=== PATIENT | female | born 1960 | race Caucasian/White ===

== ENCOUNTER 2024-01-23 17:35 | Inpatient (IN) | payer OTHER ==
[2024-01-23 18:31] VITALS: BMI 27.4
[2024-01-23] MEDS ORDERED: ONDANSETRON 4 MG/2 ML VIAL ONE (18:51)
[2024-01-23] MEDS ORDERED: FAMOTIDINE 20 MG/50 ML IVPB 20 MG/50 ML MG IVPB ONE (18:51)
[2024-01-23] MEDS ORDERED: ACETAMINOPHEN INJECTION 100 ML IVPB ONE (18:54)
[2024-01-23 18:56] LABS: BASO % 0.3 % (0-2.0); EOS % 0.6 % (0-4.5); HEMATOCRIT 43.9 % (32.4-45.2); HEMOGLOBIN 14.7 GM/dL (10.7-15.3); LYMPH % 15.2 % (8-40); MCH 28.6 pg (25.7-33.7); MCHC 33.5 g/dl (32.0-36.0); MEAN CELL VOLUME 85.4 fl (80-96); MEAN PLT VOLUME 9.7 fl (7.5-11.1); MONO % 7.2 % (3.8-10.2); NEUT % 76.7 % (42.8-82.8); PLATELET COUNT 156 10^3/uL (134-434); RBC 5.13 M/mm3 (3.60-5.2); RDW 13.9 % (11.6-15.6); WHITE BLOOD COUNT 7.5 K/mm3 (4.0-10.0)
[2024-01-23] MEDS: ACETAMINOPHEN 1000 MG/100 ML BAG IVPB ONE (18:58)
[2024-01-23] MEDS: ONDANSETRON 4 MG/2 ML VIAL IVPUSH ONE (18:58)
[2024-01-23] MEDS: FAMOTIDINE 20 MG/50 ML IVPB 20 MG/50 ML MG IVPB ONE (18:58)
[2024-01-23] MEDS: SODIUM CHLORIDE 1,000 ML IV STA (18:58)
[2024-01-23 19:14] LABS: POTASSIUM 3.8 mmol/L (3.5-5.1)
[2024-01-23 19:17] LABS: BLOOD UREA NITROGEN 18.1 mg/dL (7-18); CALCIUM 9.4 mg/dL (8.5-10.1)
[2024-01-23 19:20] LABS: CREATININE 0.7 mg/dL (0.55-1.3)
[2024-01-23 19:22] LABS: BILIRUBIN,TOTAL 0.6 mg/dL (0.2-1); TOT PROT 7.9 g/dl (6.4-8.2)
[2024-01-23] MEDS ORDERED: GLUCAGON 1 MG KIT ONE (20:29)
[2024-01-23] MEDS: GLUCAGON 1 MG KIT IVPUSH ONE (20:36)
[2024-01-24] MEDS ORDERED: ACETAMINOPHEN 1000 MG/100 ML BAG IVPB PRN (01:03)
[2024-01-24] MEDS: ONDANSETRON 4 MG/2 ML VIAL IVPUSH PRN (04:46)
[2024-01-24] MEDS: D5-1/2NS+20 MEQ KCL - 20 MEQ/1,000 ML INFUS.BAG IV SCH (04:50)
[2024-01-24] MEDS ORDERED: LACTATED RINGERS SOLUTION 1,000 ML IV SCH (13:00)
[2024-01-24] MEDS: PANTOPRAZOLE 40 MG TABLET PO SCH (21:20)
[2024-01-24] MEDS: clonazePAM 0.5 MG TABLET PO SCH (21:20)
[2024-01-25 09:34] LABS: BASO % 0.1 % (0-2.0); EOS % 0.1 % (0-4.5); HEMATOCRIT 38.5 % (32.4-45.2); HEMOGLOBIN 12.8 GM/dL (10.7-15.3); MCH 28.5 pg (25.7-33.7); MCHC 33.4 g/dl (32.0-36.0); MEAN CELL VOLUME 85.3 fl (80-96); MONO % 5.5 % (3.8-10.2); NEUT % 76.3 % (42.8-82.8); PLATELET COUNT 140 10^3/uL (134-434); RBC 4.51 M/mm3 (3.60-5.2); RDW 13.7 % (11.6-15.6)
[2024-01-25 10:15] LABS: ACTIVATED PTT 29.2 SECONDS (25.2-36.5); INR 1.03 (0.83-1.09); PROTHROMBIN TIME (PATIENT) 11.8 SEC (9.7-13.0)
[2024-01-25 10:35] LABS: BLOOD UREA NITROGEN 13.7 mg/dL (7-18); CREATININE 0.7 mg/dL (0.55-1.3); PHOSPHOROUS 2.4 mg/dL (2.5-4.9); POTASSIUM 4.2 mmol/L (3.5-5.1)
[2024-01-25] MEDS ORDERED: [UNRECOGNIZED DRUG - OTHER] PO SCH (13:00)
[2024-01-25] MEDS ORDERED: AMPHETAMINE PO SCH (13:00)
[2024-01-25] MEDS ORDERED: DEXTROAMPHETAMINE PO SCH (13:00)
[2024-01-26 11:58] VITALS: RESP 18
[2024-01-26 18:12] VITALS: BP 122/55; PULSE 71; TEMP 98.2
== END 2024-01-26 20:11 | DRG 392 ==
LOC: JER 17:35 → JERBED 01-24 00:56 → J5S 01-24 02:22
PROVIDERS: ADMIT Internal Medicine; ATTEND Family Medicine
PROC: 0DJ08ZZ Inspection of Upper Intestinal Tract, Via Natural or Artificial Opening Endoscopic (ICD-10-PCS; principal; 2024-01-24 11:30)
DX: K20.90 Esophagitis, unspecified without bleeding (principal); F90.9 Attention-deficit hyperactivity disorder, unspecified type; R13.19 Other dysphagia; E78.5 Hyperlipidemia, unspecified; J45.909 Unspecified asthma, uncomplicated; G89.29 Other chronic pain; F17.210 Nicotine dependence, cigarettes, uncomplicated
CPT/HCPCS: 0241U-QW; 36415; 71046-TC-FY; 71250-TC; 80048; 80053; 83690; 83735; 84100; 84484; 85025; 85610; 85730; 93005; 93010; 94760; 99285-25; J0131